=== PATIENT | male | born 2000 | race Caucasian/White ===

== ENCOUNTER 2023-03-18 02:16 | Emergency (ER) | payer BC ==
[~2023-03-18] VITALS: Ht 170.2 cm; Wt 77.1 kg
[2023-03-18 02:33] VITALS: BP_SYST 131
[2023-03-18] MEDS ORDERED: CIPR1VIA2 LEFT EAR (02:58)
[2023-03-18] MEDS ORDERED: IBUP-1969 PO (02:58)
[2023-03-18] MEDS ORDERED: AUG875 PO (02:58)
[2023-03-18] MEDS ORDERED: AMOXICILLIN 500 MG CAPSULE PO ONE (03:00)
[2023-03-18] MEDS ORDERED: AMOXICILLIN/POTASSIUM CLAV 875 MG TABLET PO ONE (03:00)
[2023-03-18 03:24] VITALS: BP_SYST 128
== END 2023-03-18 03:24 | disposition home or self-care (01) ==
LOC: SED 02:16
DX: H66.92 Otitis media, unspecified, left ear (principal); H92.02 Otalgia, left ear; Z79.899 Other long term (current) drug therapy
CPT/HCPCS: 99283